=== PATIENT | female | born 1945 | race Caucasian/White ===

== ENCOUNTER 2016-03-07 20:11 | Inpatient (IN) | payer OTHER ==
[~2016-03-07] VITALS: Ht 167.6 cm; Wt 66.6 kg
[~2016-03-07 20:11] MED LIST: ATEN50TA; CARI-277; HYDR5CAP; IBUP600T39; LISI-646; LOVA40TA55; TRIA25TA3
[2016-03-07 21:16] LABS: Basophils # (auto) 0 uL; Basophils % (auto) 0.4 % (0.0-2.0); Eosinophils # (auto) 0.3 uL; Eosinophils % (auto) 3.8 % (0.0-7.0); Hematocrit 45.9 % (36.0-46.0); Hemoglobin 15.1 g/dL (12.2-16.2); Lymphocytes # (auto) 0.9 uL; Lymphocytes % (auto) 11.8 % (10.0-50.0); Mean Corpuscular Hemoglobin 31.8 pg (28.0-32.0); Mean Corpuscular Volume 96.5 fL (80.0-100.0); Mean Platelet Volume 7.7 fL (7.4-10.4); Monocytes # (auto) 0.6 uL; Monocytes % (auto) 8.4 % (0.0-12.0); Neutrophils # (auto) 5.6 uL; Neutrophils % (auto) 75.6 % (37.0-80.0); Platelet Count (auto) 205 10^3/uL (140-450); Red Cell Distribution Width 13.5 % (11.6-16.0); White Blood Cell 7.4 10^3/uL (4.4-10.8)
[2016-03-07 21:34] LABS: INR 1.09 (0.9-1.15); Partial Thromboplastin Time 23.4 sec (22.64-33.71); Prothrombin Time 11.2 sec (9.37-12.3)
[2016-03-07 21:37] LABS: B-Type Natriuretic Peptide 62.57 pg/mL (0-100)
[2016-03-07 21:39] LABS: Temperature: 21.9 C (20.0-25.0)
[2016-03-07 21:50] LABS: BUN/Creatinine Ratio 25.8; Bilirubin, Total 0.5 mg/dL (0.2-1.0); Calcium 9.1 mg/dL (8.5-10.1); Magnesium 2.1 mg/dL (1.6-2.6); Potassium 3.7 mmol/L (3.5-5.1); Total Protein 7.5 g/dL (6.4-8.2)
[2016-03-08] MEDS ORDERED: ALBUTEROL SULF 2.5 MG/0.5ML(0.5%) NEB SOLN NEB ONE ×2 (04:30→07:45)
[2016-03-08] MEDS ORDERED: methylPREDNISolone SOD SUCC 125 MG/2 ML VL IV ONE (04:30)
[2016-03-08] MEDS ORDERED: IPRATROPIUM BROM 0.5 MG/2.5ML INH SOL NEB ONE ×2 (04:30→07:45)
[2016-03-08] MEDS ORDERED: IOHEXOL 350 MG/ML 100ML IJ ONE (07:18)
[2016-03-08] MEDS ORDERED: PROMETHAZINE HCL 25 MG/ML 1ML IV PRN (10:45)
[2016-03-08] MEDS ORDERED: ACETAMINOPHEN 500 MG TAB PO PRN (10:45)
[2016-03-08] MEDS ORDERED: MORPHINE SULF INJ 2 MG/ML SYRINGE 1ML IV PRN ×2 (10:45)
[2016-03-08] MEDS ORDERED: ALBUTEROL SULF 2.5 MG/0.5ML(0.5%) NEB SOLN NEB PRN (10:45)
[2016-03-08] MEDS ORDERED: NITROGLYCERIN 0.4 MG SL TAB SL PRN (10:45)
[2016-03-08] MEDS ORDERED: LORazepam 0.5 MG TAB PO PRN (10:45)
[2016-03-08] MEDS ORDERED: TEMAZEPAM 15 MG CAP PO PRN (10:45)
[2016-03-08] MEDS ORDERED: LACTULOSE 20Gm/30ML SOLN PO PRN (10:45)
[2016-03-08] MEDS ORDERED: HYDROcodone-ACET 5/325MG TAB PO PRN (10:45)
[2016-03-08] MEDS ORDERED: OSELTAMIVIR 30 MG CAP PO ONE (11:00)
[2016-03-08] MEDS: ALBUTEROL SULF 2.5 MG/0.5ML(0.5%) NEB SOLN NEB SCH ×2 (11:09→19:19)
[2016-03-08] MEDS: IPRATROPIUM BROM 0.5 MG/2.5ML INH SOL NEB SCH ×2 (11:09→19:19)
[2016-03-08] MEDS: DOXYCYCLINE HYC 100MG/250ML 250 ML IV SCH ×2 (11:10→21:41)
[2016-03-08] MEDS: SODIUM CHLORIDE 0.9% 1,000 ML IV SCH (11:10)
[2016-03-08 11:38] VITALS: BP 135/77
[2016-03-08] MEDS: methylPREDNISolone SOD SUCC 40 MG/ML VL IV SCH ×2 (12:21→17:34)
[2016-03-08 13:12] VITALS: BP 138/85
[2016-03-08 16:31] VITALS: BP 126/66
[2016-03-08 22:00] VITALS: BP 129/67
[2016-03-08] MEDS ORDERED: OSELTAMIVIR 30 MG CAP PO SCH (22:00)
[2016-03-09] MEDS: IPRATROPIUM BROM 0.5 MG/2.5ML INH SOL NEB SCH ×4 (00:42→18:12)
[2016-03-09] MEDS: ALBUTEROL SULF 2.5 MG/0.5ML(0.5%) NEB SOLN NEB SCH ×4 (00:42→18:13)
[2016-03-09] MEDS: SODIUM CHLORIDE 0.9% 1,000 ML IV SCH (00:50)
[2016-03-09] MEDS: methylPREDNISolone SOD SUCC 40 MG/ML VL IV SCH ×4 (05:44→22:07)
[2016-03-09 05:46] VITALS: BP 165/95
[2016-03-09 06:14] LABS: Cholesterol 170 mg/dL (<200); HDL Cholesterol 110 mg/dL (40-59); LDL Cholesterol 66 mg/dL (<100); Triglycerides 31 mg/dL (<150)
[2016-03-09 08:29] VITALS: BP 119/74
[2016-03-09] MEDS: DOXYCYCLINE HYC 100MG/250ML 250 ML IV SCH ×2 (11:02→22:07)
[2016-03-09 12:35] VITALS: BP 128/73
[2016-03-09] MEDS ORDERED: ATENOLOL 50 MG TAB PO ONE (14:15)
[2016-03-09 16:58] VITALS: BP 138/75
[2016-03-09 22:00] VITALS: BP 127/73
[2016-03-10] MEDS: ALBUTEROL SULF 2.5 MG/0.5ML(0.5%) NEB SOLN NEB SCH ×4 (00:01→18:42)
[2016-03-10] MEDS: IPRATROPIUM BROM 0.5 MG/2.5ML INH SOL NEB SCH ×4 (00:01→18:42)
[2016-03-10 05:00] VITALS: BP 142/76
[2016-03-10 06:44] LABS: Basophils # (auto) 0 uL; Eosinophils # (auto) 0 uL; Hematocrit 45.6 % (36.0-46.0); Lymphocytes # (auto) 0.5 uL; Lymphocytes % (auto) 5.2 % (10.0-50.0); Mean Corpuscular Hgb Conc. 32.8 g/dL (32.0-36.0); Mean Corpuscular Volume 97.3 fL (80.0-100.0); Mean Platelet Volume 8.1 fL (7.4-10.4); Monocytes # (auto) 0.3 uL; Monocytes % (auto) 3.2 % (0.0-12.0); Neutrophils # (auto) 8.2 uL; Neutrophils % (auto) 91.6 % (37.0-80.0); Platelet Count (auto) 214 10^3/uL (140-450); Red Cell Distribution Width 13.2 % (11.6-16.0)
[2016-03-10 06:58] LABS: BUN/Creatinine Ratio 33.3; Calcium 8.7 mg/dL (8.5-10.1); Potassium 3.8 mmol/L (3.5-5.1)
[2016-03-10 09:00] VITALS: BP 139/77
[2016-03-10] MEDS ORDERED: ATENOLOL 50 MG TAB PO SCH (10:00)
[2016-03-10] MEDS ORDERED: LISINOPRIL 20 MG TAB PO SCH (10:00)
[2016-03-10] MEDS: DOXYCYCLINE HYC 100MG/250ML 250 ML IV SCH (10:48)
[2016-03-10] MEDS: methylPREDNISolone SOD SUCC 40 MG/ML VL IV SCH (10:48)
[2016-03-10 13:00] VITALS: BP 128/89
[2016-03-10] MEDS ORDERED: ALBUAER3 IN (15:52)
[2016-03-10] MEDS ORDERED: DOXY1CAP82 PO (15:52)
[2016-03-10] MEDS ORDERED: METH4PAK PO (15:52)
[2016-03-10] MEDS ORDERED: IPRIH INH (15:52)
[2016-03-10 17:00] VITALS: BP 147/88
[2016-03-10 22:00] VITALS: BP 123/70
[2016-03-10 22:15] VITALS: BP 123/70
== END 2016-03-10 23:23 | disposition home health service (06) | DRG 189 ==
LOC: ER 20:13 → TELE 20:14 → TELE-WESTW 03-08 12:36
PROVIDERS: ADMIT Internal Medicine; ATTEND Internal Medicine
DX: J96.00 Acute respiratory failure, unspecified whether with hypoxia or hypercapnia (principal); J44.1 Chronic obstructive pulmonary disease with (acute) exacerbation; Z96.642 Presence of left artificial hip joint; Z96.651 Presence of right artificial knee joint; I34.1 Nonrheumatic mitral (valve) prolapse; I10 Essential (primary) hypertension; G89.29 Other chronic pain; M54.5 Low back pain; E78.5 Hyperlipidemia, unspecified; Z87.891 Personal history of nicotine dependence
CPT/HCPCS: 36415; 36600; 71010; 71275; 80048; 80053; 80061; 82805; 83735; 83880; 84484; 85025; 85049; 85379; 85610; 85730; 87400; 93005; 94640; 96374; G9035; J3490

== ENCOUNTER 2019-03-24 10:32 | Emergency (ER) | payer OTHER ==
[~2019-03-24] VITALS: Ht 167.6 cm; Wt 67.1 kg
[~2019-03-24 10:32] MED LIST changes: +ALBUAER3 IN; +DOXY-338 PO; +IPRIH INH; +LOVA1TAB62; -LOVA40TA55; +METH4PAK PO
[2019-03-24] MEDS ORDERED: SODIUM CHLORIDE 0.9% 1,000 ML IV ONE (10:47)
[2019-03-24 11:44] LABS: Basophils # (auto) 0.1 uL; Eosinophils # (auto) 0.2 uL; Eosinophils % (auto) 3.4 % (0.0-7.0); Hematocrit 40.8 % (36.0-46.0); Lymphocytes # (auto) 0.9 uL; Lymphocytes % (auto) 18.5 % (10.0-50.0); Mean Corpuscular Hemoglobin 32.7 pg (28.0-32.0); Mean Corpuscular Hgb Conc. 34.4 g/dL (32.0-36.0); Mean Corpuscular Volume 94.9 fL (80.0-100.0); Monocytes # (auto) 0.4 uL; Monocytes % (auto) 8.1 % (0.0-12.0); Neutrophils # (auto) 3.5 uL; Nucleated Red Blood Cells % 0.1 %; Platelet Count (auto) 177 10^3/uL (140-450); Red Blood Cells 4.29 10^6/uL (4.0-5.20); Red Cell Distribution Width 12.9 % (11.8-14.3); White Blood Cell 5.1 10^3/uL (4.4-10.8)
[2019-03-24 12:05] LABS: Albumin 3.8 g/dL (3.4-5.0); Anion Gap 5 (5-15); Blood Urea Nitrogen 13 mg/dL (7-18); Calcium 9.3 mg/dL (8.5-10.1); Carbon Dioxide 30 mmol/L (21-32); Chloride 105 mmol/L (98-107); Glucose 105 mg/dL (74-106); Magnesium 2.3 mg/dL (1.6-2.6); Potassium 4.2 mmol/L (3.5-5.1); Sodium 140 mmol/L (136-145)
[2019-03-24 12:11] LABS: Alanine Aminotransferase 28 U/L (13-56); Alkaline Phosphatase 80 U/L (45-117); Aspartate Aminotransferase 18 U/L (15-37); Bilirubin, Total 0.5 mg/dL (0.2-1.0); GFR African American 128 mL/min; GFR Non-African American 106 mL/min; Total Protein 7.4 g/dL (6.4-8.2)
[2019-03-24 13:42] VITALS: BP 152/82
== END 2019-03-24 13:45 | disposition home or self-care (01) ==
LOC: ER 10:32 → EDBD 10:32 → ER 13:44
DX: R42 Dizziness and giddiness (principal); R53.1 Weakness; R00.2 Palpitations
CPT/HCPCS: 36415; 70450; 71045; 80053; 83735; 84484; 85025; 93005